=== PATIENT | male | born 1970 | race Caucasian/White ===

== ENCOUNTER 2020-12-21 22:57 | Observation (INO) | payer OTHER ==
[~2020-12-21] VITALS: Ht 167.6 cm; Wt 89.9 kg
[2020-12-21 23:42] LABS: BASOPHILS ABSOLUTE AUTO 0.14 K/mm3 (0.00-0.23); BASOPHILS PERCENT AUTO 1 % (0-2); EOSINOPHILS ABSOLUTE AUTO 0.34 K/mm3 (0.00-0.68); EOSINOPHILS PERCENT AUTO 3 % (0-6); Hematocrit 50.4 % (37.0-53.0); Hemoglobin 16.8 g/dL (13.5-17.5); IMMATURE GRAN ABSOLUTE AUTO 0.08 K/mm3 (0.00-0.10); IMMATURE GRAN PERCENT AUTO 1 % (0-1); LYMPHOCYTES ABSOLUTE AUTO 2.18 K/mm3 (0.84-5.20); LYMPHOCYTES PERCENT AUTO 18 % (21-46); MONOCYTES ABSOLUTE AUTO 1.23 K/mm3 (0.16-1.47); MONOCYTES PERCENT AUTO 10 % (4-13); Mean Corpuscular HGB 28.8 pg (26.0-34.0); Mean Corpuscular HGB Conc 33.3 g/dL (31.5-36.5); Mean Corpuscular Volume 86 fL (80-100); Mean Platelet Volume 12.6 fL (9.1-12.4); NEUTROPHILS ABSOLUTE AUTO 8.36 K/mm3 (1.96-9.15); NEUTROPHILS PERCENT AUTO 68 % (41-73); Platelet Count 239 K/mm3 (150-400); RDW Coefficient Variation 15.9 % (11.7-14.2); RDW Standard Deviation 49.8 fL (35.1-46.3); Red Blood Cell Count 5.83 M/mm3 (4.30-5.90); White Blood Cell Count 12.33 K/mm3 (4.00-11.30)
[2020-12-22 00:01] LABS: Alanine Aminotransfer (ALT/SGP 36 U/L (12-78); Albumin, Blood 3.6 g/dL (3.4-5.0); Albumin/Globulin Ratio 1.1 (0.8-1.8); Alk Phos 129 U/L (50-136); Anion Gap 7 mmol/L (6-16); Aspartate Aminotrans (AST/SGOT 42 U/L (12-37); Bilirubin, Total 1.2 mg/dL (0.1-1.0); Blood Urea Nitrogen 21 mg/dL (8-24); Bun/Creatinine Ratio 16.9 (12.0-20.0); CO2, Blood 26 mmol/L (21-32); Calcium, Blood 8.9 mg/dL (8.5-10.1); Chloride, Blood 106 mmol/L (98-108); Creatinine, Blood 1.24 mg/dL (0.60-1.20); Globulin, Blood 3.4 g/dL (2.2-4.0); Glomerular Filtration Rate >60 (60-); Glucose, Blood 170 mg/dL (70-99); Potassium, Blood 3.6 mmol/L (3.5-5.5); Sodium, Blood 139 mmol/L (136-145)
[2020-12-22 00:03] LABS: International Normalized Ratio 1.13
[2020-12-22 00:58] LABS: Troponin I 0.028 ng/mL (0.000-0.040)
[2020-12-22] MEDS ORDERED: FURO20 (01:18)
[2020-12-22] MEDS ORDERED: Lisinopril2.5 MG PO (01:18)
[2020-12-22] MEDS ORDERED: Aspir 8181 MG PO (01:18)
[2020-12-22 03:15] LABS: Source, Urine Catheter
[2020-12-22 03:17] LABS: Appearance, Urine Clear (Clear); Bilirubin, Urine Neg (Neg); Blood, Urine 1+ (Neg); Color, Urine Amber (P-Yellow); Glucose Qualitative, Urine Neg (Neg); Ketones, Urine Neg (Neg); Leukocyte Esterase, Urine 1+ (Neg); Nitrite, Urine Neg (Neg); Protein, Urine 3+ (Neg); Specific Gravity, Urine 1.025 (1.003-1.022); Urobilinogen, Urine 1+ (Normal)
[2020-12-22 03:25] LABS: Bacteria Mod /hpf; Red Blood Cells, Urine 0-2 /hpf (0-2); Squamous Epithelial Cells Few /hpf (Few)
[2020-12-22] MEDS ORDERED: METO25ER PO (03:45)
[2020-12-22] MEDS ORDERED: AMLO5 PO (03:47)
--- NOTE | 2020-12-22 04:33 | NUR ---
PATIENT IS VERY RESTLESS UNABLE TO LAY DOWN IN BED, CONTINUES TO GET UP WALKING AROUND IN ROOM BUT STANDS BENDING OVER LIKE HE IS PICKING SOMETHING UP AND STARTS TO FALL OVER. HE IS A HIGH FALL RISK AND WILL NOT STAY SITTING AND DOES NOT CALL FOR HELP. ATIVAN WAS GIVEN BUT IT IS NOT HELPING, HE IS VERY ITCHY AND STATES PAIN IN HIW LOWER BACK DOWN TO HIS HIPS AND LEGS. SPOKE TO BECKI AND GOT ORDERS TO HELP WITH ITCHY, RESTLESSNESS, AND PAIN.
[2020-12-22 05:08] LABS: BASOPHILS ABSOLUTE AUTO 0.12 K/mm3 (0.00-0.23); BASOPHILS PERCENT AUTO 1 % (0-2); EOSINOPHILS ABSOLUTE AUTO 0.35 K/mm3 (0.00-0.68); EOSINOPHILS PERCENT AUTO 3 % (0-6); Hematocrit 51.1 % (37.0-53.0); Hemoglobin 16.7 g/dL (13.5-17.5); IMMATURE GRAN PERCENT AUTO 1 % (0-1); LYMPHOCYTES ABSOLUTE AUTO 2.69 K/mm3 (0.84-5.20); LYMPHOCYTES PERCENT AUTO 25 % (21-46); MONOCYTES ABSOLUTE AUTO 1.12 K/mm3 (0.16-1.47); MONOCYTES PERCENT AUTO 10 % (4-13); Mean Corpuscular HGB 28.6 pg (26.0-34.0); Mean Corpuscular HGB Conc 32.7 g/dL (31.5-36.5); Mean Corpuscular Volume 88 fL (80-100); Mean Platelet Volume 12.2 fL (9.1-12.4); NEUTROPHILS ABSOLUTE AUTO 6.57 K/mm3 (1.96-9.15); NEUTROPHILS PERCENT AUTO 60 % (41-73); Platelet Count 226 K/mm3 (150-400); RDW Coefficient Variation 15.9 % (11.7-14.2); Red Blood Cell Count 5.83 M/mm3 (4.30-5.90); White Blood Cell Count 10.95 K/mm3 (4.00-11.30)
[2020-12-22 05:44] LABS: Anion Gap 8 mmol/L (6-16); Blood Urea Nitrogen 20 mg/dL (8-24); Bun/Creatinine Ratio 16.4 (12.0-20.0); CO2, Blood 26 mmol/L (21-32); Calcium, Blood 8.9 mg/dL (8.5-10.1); Chloride, Blood 107 mmol/L (98-108); Creatinine, Blood 1.22 mg/dL (0.60-1.20); Glomerular Filtration Rate >60 (60-); Glucose, Blood 118 mg/dL (70-99); Potassium, Blood 3.3 mmol/L (3.5-5.5); Sodium, Blood 141 mmol/L (136-145)
[2020-12-22 06:14] LABS: U Amphetamine Screen DETECTED; U Barbituate Screen Not Detected; U Benzodiazapine Screen Not Detected; U Buprenorphine Screen Not Detected; U Cannabinoids Screen DETECTED; U Cocaine Screen Not Detected; U Methadone Screen Not Detected; U Methamphetamine Screen DETECTED; U Opiates Screen Not Detected; U Oxycodone Screen Not Detected; U Phencyclidine Screen Not Detected; U Propoxyphene Screen Not Detected
--- NOTE | 2020-12-22 07:33 | NUR ---
SHIFT SUMMARY PT IS A 50 Y/O MALE ADMITTED FOR CELLULITIS. LLE IS RED AND SWOLLEN, WITH A RED RAISED PAPILLARY RASH NOTED ON HIS ABD, ARMS AND BACK. HR WAS ELEVATED IN THE 100S, BUT VITAL SIGNS OTHERWISE STABLE. ON ADMIT TO THE UNIT, PT WAS VERY RESTLESS, AGITATED AND INTERMITTENTLY CONFUSED. AT 0415, PT WAS GIVEN 1 MG IV ATIVAN FOR ANXIETY. PT BECAME MORE CONFUSED AND RESTLESS, UNABLE TO LAY STILL, AND LETHARGIC, FALLING ASLEEP IN THE MIDDLE OF SENTENCES AND NEARLY FALLING FORWARD WHEN SITTING ON THE SIDE OF THE BED. PT BECAME AN EXTREME FALL RISK, STUMBLING AND SWAYING WHEN ON HIS FEET AND UNABLE TO FOLLOW DIRECTIONS, WITH SOME POSSIBLE VISUAL HALLUCINATIONS NOTED. PT REFUSED TO LAY ON THE BED, REPEATEDLY SAYING "I CAN'T BREATHE" AND ALSO C/O LOWER BACK PAIN. THE HOSPITALIST WAS CALLED, AND A OT DOSE OF TORADOL, HYDROXAZINE AND ATIVAN. PT WAS GIVEN TORADOL, BUT WOULD NOT TAKE PILLS AND ATIVAN WAS HELD DUE TO PT'S MENTATION CHANGE AFTER THE FIRST DOSE. ATTEMPTED TO PLACE A KIERRA VEST DUE TO PT'S HIGH FALL RISK, AND PT BECAME VERY AGITATED AND COMBATIVE, STATING THAT "YOU CANT TIE ME TO THE BED" AND THAT "I WANT TO LEAVE" AND THAT "I'M GOING TO JUDY ALL OF YOU". SECURITY WAS CALLED, AND THE HOSPITALIST INFORMED TO DETERMINE THE COURSE OF ACTION FOR PT SAFETY AND TX. THE HOSPITALIST DR CONNELL SPOKE WITH THE PT'S GF, AND ER PHYSICIAN, AND DETERMINED THAT THE PT WAS MOST LIKELY UNDER THE INFLUENCE OF DRUGS (WITH A REPORTED HX OF METH USE BY THE PT) AND WAS CURRENTLY INCAPABLE OF MAKING INFORMED DECISIONS TO LEAVE AMA AT THIS TIME. PT WAS PLACED ON A DRUG AND ETOH HOLD AT THAT TIME AND PLACED IN 4 POINT RESTRAINTS AND KIERRA VEST FOR PT SAFETY. A STRAIGHT CATH WAS PERFORMED D/T PT REFUSING TO USE A URINAL, AND A U-TOX WITH WAS + FOR METH/AMPHETAMINES AND MARIJUANA. PT WAS MOVED FROM ROOM 336 TO 352. PT SLEEPING WHILE SITTING UP AT THAT TIME. REPORT GIVEN TO LALO GUDINO RN.
--- NOTE | 2020-12-22 07:35 | NUR ---
Assumed Care Patient transferred from 336 to 352. Arrived to room at approximately 0730. Patient sleeping in bed with 4 point and vest restraints in place. Personal belongs with patient. Visible redness to LLE. VS shows hypertension and tachycardia which is not new since admitted. WCTM.
--- NOTE | 2020-12-22 09:00 | NUR ---
Patient awoken and appears agitated, pulling on restraints, and demanding to know why restraints are on. Patient not listening to reason. Garbled and mumbling speech causing this RN to not make out what patient is trying to say which increases patient's agitation. Patient states "So you're going to play that game with me again." Patient requesting to use the bathroom and agreeable to cooperate. Sabiha LEONARD, called in to assist this RN with patient to the bathroom. Gait belt placed for safety d/t this being first time this RN has had patient out of bed. 1P c gait belt to bathroom, unsteady gait. After getting back to bed and dangling, patient becomes tearful and asks again about why restraints were placed on in the first place. Explained that patient was severely confused c wobbly gait, having visual hallucinations and agitation, and became a high fall risk, restraints were for patient's safety as well as staff. Patient, again, not listening to reason mumbling to self and staff being aggressive, but nonthreatening. Actually allowed this RN to do an assessment on him. Patient request phone to call [facility] for which this RN help to call. Dr. Handley called whether to continue 2MD hold as Dr. Bernal had written. V.O. to place 2MD hold from Dr. Handley. bone char puller Mary informed and was beginning the paperwork for 2MD hold. Nursing Mine Inspector Wayne also notified.
--- NOTE | 2020-12-22 09:05 | NUR ---
PT REPORTS HE WANTS TO LEAVE THIS MORNING. THIS RN WATCHED PT SPOKE TO HIS RN AND OCCUPATIONAL THERAPY ASST VERY ROUGHLY ABOUT BEING IN THE HOSPITAL AND HAVING HAD TO BE RESTRAINED. HE WAS UNABLE TO REMEMBER THE EVENTS OF THE NIGHT THAT LEAD TO BEING PLACED IN RESTRAINTS. ALTHOUGH AGGRESSIVE IN NATURE RESTRAINTS HAVE BEEN REMOVED PT APPEARS NON-THREATENING AND MORE A/O. I WILL SPEAK TO IN REGARD TO NOT PLACING 2 MD HOLD PT WANTS TO LEAVE WITH CLIFF AND RETURN HOME OUT OF STATE; THEY WERE JUST PASSING THROUGH. I SPOKE WITH YECENIA PT SAID CLIFF AND SHE WANTED TO COME IN AND PICK THE PT UP AND RETURN TO THEIR HOME OUT OF STATE. I HAVE ASSURED HER I WILL SPEAK WITH ABOUT IT AND LET HER KNOW. HER KNOW.
--- NOTE | 2020-12-22 09:25 | NUR ---
THIS RN SPOKE WITH . PT MENTATION OF A/O AND WANTING TO LEAVE WAS REPORTED TO HER. ALSO REPORTED TO HER THAT CLIFF WANTED TO PICK PT UP AND RETURN TO THEIR HOME OUT OF STATE. I LET HER KNOW RESTRAINTS WERE REMOVED AND THAT 2 MD HOLD ORDERS HAD NOT YET BEEN PLACED. IT WAS DECIDED TO NOT PLACE 2 MD HOLD AND ALLOW PT TO GO AMA WITH HIS FITITO. PT STILL SEEMS AGGITATED AT THIS TIME BUT NON-THREATENING. HE'S TEARFUL AND ANGRY THAT HE HAD TO BE RESTRAINED. WE HAVE EXPLAINED THAT WE WERE ONLY PREVENTING SELF HARM AND MONITORING HIS SAFETY. I AGAIN SPOKE TO HIS FITITO KEENE AND SHE WILL BE COMING IN SOON TO PICK PT UP.
--- NOTE | 2020-12-22 11:08 | NUR ---
Discharge Summary -AMA- At assumption of care, patient was obtunded and difficult to wake with verbal and tactile stimulation. PO meds were held and some were changed to IV d/t mentation. Patient began to awaken when IV potassium started infusing. Patient tearful d/t being restrained asking to know why the restraints were necessary. This RN attempted to explain rationale for using physical restraints but patient would not listen and kept mumbling with some slurring of speech. Rationale was for patient's safety d/t stupurous stance and decreased LOC during the night. Some words were difficult to make out from patient. He was agitated and angry, but agreed to calm down so restraints can be removed. A/Ox3 by this time so restraints were removed and patient assisted to bathroom. Unsteady gait requiring gait belt with hand guarding. With ambulation to bathroom, patient was dyspneic and tachypneic. Adamant about leaving AMA. Elder Chavez) called per patient's request and patient signed AMA form with "XX". Refused to be escorted by staff via w/c so patient walked out of the hospital. IV removed. Potassium IV did not finish infusing. When this RN tried to explain the AMA form, patient responded "I'm not dumb, I finished high school!" When this RN tried to hand patient his belongings, patient forcefully grabbed it from my hand screaming as he was walking out "You all will be hearing from my nut roaster helper!"
== END 2020-12-22 10:52 | disposition left against medical advice (07) ==
LOC: ER 22:57 → MEDS 22:58
PROVIDERS: Physician Assistant; ADMIT Internal Medicine
DX: L03.116 Cellulitis of left lower limb (principal); R21 Rash and other nonspecific skin eruption; G93.41 Metabolic encephalopathy; I27.20 Pulmonary hypertension, unspecified; Z53.29 Procedure and treatment not carried out because of patient's decision for other reasons; M79.605 Pain in left leg; R00.0 Tachycardia, unspecified; R45.1 Restlessness and agitation; R26.81 Unsteadiness on feet; R94.31 Abnormal electrocardiogram [ECG] [EKG]; F17.210 Nicotine dependence, cigarettes, uncomplicated; Z79.899 Other long term (current) drug therapy; Z88.5 Allergy status to narcotic agent; I13.0 Hypertensive heart and chronic kidney disease with heart failure and stage 1 through stage 4 chronic kidney disease, or unspecified chronic kidney disease; I50.9 Heart failure, unspecified; N18.30 Chronic kidney disease, stage 3 unspecified; Z79.82 Long term (current) use of aspirin
CPT/HCPCS: 36415; 71045; 80048; 80053; 81001; 83605; 83880; 84484; 85025; 85610; 85730; 87040; 87086; 93005; 93010; 93971; 96365; 96366; 96367; 96372; 96375; 96376; 99285-25; G0378; G0480; J0696; J1100; J1200; J1650; J1885; J1940; J2060; J3370; J3480; J7050